=== PATIENT | female | born 1975 | race Caucasian/White ===

== ENCOUNTER 2021-02-09 21:58 | Emergency (ER) | payer MEDICAID ==
[~2021-02-09] VITALS: Ht 152.4 cm; Wt 54.4 kg
[2021-02-09] MEDS ORDERED: ACETAMINOPHEN 325 MG TABLET PO ONE (22:30)
[2021-02-09] MEDS ORDERED: ACETAMINOPHEN ES 500 MG TABLET ONE (22:37)
[2021-02-09 22:47] LABS: BILIRUBIN,URINE SMALL (NEGATIVE); COLOR,URINE DARK YELLOW (YELLOW); LEUKOCYTE ESTERASE ,URINE Small (NEGATIVE); NITRITE, URINE Negative (NEGATIVE); PROTEIN,URINE 30 mg/dl (NEGATIVE); UGLUCOSE Negative (NEGATIVE); UROBILINOGEN,URINE 0.2 EU/dL (0.2)
--- NOTE | 2021-02-09 22:47 | NUR ---
A&[facility] BIB SELF REPORTING BURNING WITH URINATION 11/11 CURRENTLY AFTER TAKING AZO. PATIENT REPORTS CHRONIC UTI WITH LAST EPISODE STARTING X5DAYS AGO. PATIENT REPORT FEVER OF UP TO 103 THAT BEGAN YESTERDAY. HAS BEEN SELF TREATING WITH TYLENOL WITH CURRENT TEMP OF 99.5. PATIENT NOTED TACHYCARDIC @ 111. URINE COLLECTED. MD WAS AT BEDSIDE. ORDERS RECIEVED, NOTED, AND CARRIED OUT. PATIENT MEDICATED AND WILL CONTINUE TO MONITOR.
--- NOTE | 2021-02-09 22:56 | NUR ---
COVID SWAB COLLECTED AND SENT TO LAB
[2021-02-09 23:23] LABS: BACTERIA,URINE 1+ /HPF (None Seen); SQUAMOUS EPITHELIAL CELL,UR Few /HPF (None Seen)
[2021-02-09] MEDS ORDERED: NITR100C6 PO (23:24)
[2021-02-09 23:39] VITALS: BP 101/60
== END 2021-02-09 23:40 | disposition home or self-care (01) ==
LOC: ER 21:58
DX: N39.0 Urinary tract infection, site not specified (principal); Z20.822 Contact with and (suspected) exposure to COVID-19; R00.0 Tachycardia, unspecified
CPT/HCPCS: 71045; 81001; 87086; 87426; 99284; C9803